=== PATIENT | female | born 1970 | race Asian ===

== ENCOUNTER 2021-03-17 20:42 | Emergency (ER) | payer BC ==
[~2021-03-17] VITALS: Ht 160 cm; Wt 64.4 kg
[2021-03-17] MEDS ORDERED: ACETAMINOPHEN 325 MG TABLET PO ONE (21:00)
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
[2021-03-17] MEDS ORDERED: ACETAMINOPHEN ES 500 MG TABLET ONE (21:19)
[2021-03-17 21:36] LABS: BASOPHILS % (AUTO) 0.5 % (0.0-2.0); HEMATOCRIT 40 % (33-45); HEMOGLOBIN 13.3 g/dL (11.5-14.8); MEAN CORPUSCULAR HGB CONC 33 g/dl (31.0-36.0); MEAN CORPUSCULAR VOLUME 89 fL (82-100); NEUTROPHILS % (AUTO) 76.5 % (43.0-81.0); PLATELET COUNT (AUTO) 268 /CMM (150-450); RED BLOOD CELL COUNT(AUTO) 4.51 MIL/uL (4.0-5.2)
[2021-03-17 21:37] LABS: LYMPHOCYTES # (AUTO) 1.4 /CMM (0.8-4.8); MONOCYTES # (AUTO) 0.5 /CMM (0.1-1.30); NEUTROPHILS # (AUTO) 6.8 /CMM (1.8-8.9)
[2021-03-17 21:46] LABS: CALCIUM, SERUM 8.6 mg/dL (8.5-10.1); CARBON DIOXIDE 28 mmol/L (21-32); CHLORIDE 103 mmol/L (98-107); CREATININE 0.6 mg/dL (0.6-1.3); GLUCOSE 99 mg/dL (74-106); POTASSIUM 3.3 mmol/L (3.5-5.1); SODIUM SERUM 138 mmol/L (136-145); UREA NITROGEN, BLOOD 20 mg/dL (7-18)
[2021-03-17] MEDS ORDERED: IOHEXOL-350 100 ML VIAL IV ONE (22:12)
[2021-03-17] MEDS ORDERED: IV NS 0.9% 250 ML IV ONE (22:12)
[2021-03-17] MEDS ORDERED: CT SWABBABLE VALVE TRANS SET 1 EA INFUS.SET MC ONE (22:12)
[2021-03-17] MEDS ORDERED: ACET-2605 PO (23:51)
[2021-03-17] MEDS ORDERED: CYCL10TA9 PO (23:51)
[2021-03-18] MEDS ORDERED: HYDROCODONE/APAP 10/325MG TABLET PO ONE
[2021-03-18] MEDS ORDERED: IBUPROFEN 600 MG TABLET PO ONE
[2021-03-18] MEDS ORDERED: HYDROCODONE/APAP 10/325MG TABLET ONE (00:02)
[2021-03-18] MEDS ORDERED: IBUPROFEN 600 MG TABLET ONE (00:03)
[2021-03-18 00:37] VITALS: BP 128/79
--- NOTE | 2021-03-18 00:38 | NUR ---
Patient discharged to home in stable condition. Written and verbal after care instructions given. Patient verbalizes understanding of instruction.IV removed. Catheter intact and site benign. Pressure and 4x4 applied to site. No bleeding noted.Ms. Baker is ambulatory with a steady gait
== END 2021-03-18 00:38 | disposition home or self-care (01) ==
LOC: ER 20:42
DX: S00.83XA Contusion of other part of head, initial encounter (principal); S20.219A Contusion of unspecified front wall of thorax, initial encounter; V32.5XXA Driver of three-wheeled motor vehicle injured in collision with two- or three-wheeled motor vehicle in traffic accident, initial encounter; Y93.89 Activity, other specified; Y92.413 State road as the place of occurrence of the external cause; Y99.8 Other external cause status
CPT/HCPCS: 36415; 70450; 70498; 71260; 72125; 80048; 84484; 85025; 93005; 99285; J7050; L0172; Q9967